=== PATIENT | female | born 2000 | race Caucasian/White ===

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

== ENCOUNTER 2022-05-31 12:39 | Emergency (ER) | payer OTHER ==
[~2022-05-31] VITALS: Ht 175.3 cm; Wt 98.0 kg
[2022-05-31 12:44] VITALS: BP 121/59; TEMP 98.5
== END 2022-05-31 13:37 | disposition home or self-care (01) ==
LOC: ED 12:39
DX: Z32.01 Encounter for pregnancy test, result positive (principal)
CPT/HCPCS: 81002; 81025; 99283